=== PATIENT | male | born 1995 | race Two or more races ===

== ENCOUNTER 2022-06-17 15:30 | Outpatient (CLI) | payer OTHER ==
--- NOTE | 2022-06-17 16:24 | SLEEP CARE CONSULTATION ---
Information from patient questionnaire entered by Aníbal Alonso MA. I have reviewed and concur with the information entered by Aníbal Alonso MA. This document represents the service I personally performed and the decisions made by me, Una Valdez ARNP. History of Present Illness Service Date and Time: 06/17/2022 1530 Reason for Visit: New patient (ONSET 11/27/2019, NO PRIOR,) Chief Complaint: reports: Unrefreshed sleep, Snoring, Excessive daytime sleepin ess, Fatigue Date of Onset: 3 YEARS Usual bedtime: varies, 10 pm to other depending on shift Time it takes to fall asleep: 40 MINUTES Snores at night: Yes Observed to quit breathing while asleep: Yes Sleeps alone due to snoring: No Number of times waking at night: 1 Reasons for waking at night: reports: Bathroom, Other (twitching in sleep will wake him up). denies: Choking, Snoring, Gasping for air Toss, Turn, or Twitch while sleeping: Yes Recalls having dreams: No Usually gets out of bed at: 0500; days off 1000 Feels refreshed in the morning: No Morning headache: No Sleepy or fatigued during the day: Yes (some unintentional naps) Ever fallen asleep while driving: No Takes day naps: Yes (2-3 times a week for about 3 hrs, makes him feel worse) Dreams during day naps: No Prior sleep studies: No Additional HPI information: I had the pleasure of seeing ADRIAN VITAL today regarding the possibility of him having a sleep disorder. His current complaints are excessive daytime sleepiness, fatigue, snoring and unrefreshed sleep. He states he has snoring for a long time. He will also twitched in his sleep and he does not wake up feeling refreshed. His has noted pauses in breathing when he is sleeping. He works for the and his schedule can vary from days to nights. - Parasomnia Symptoms Ever been unable to move upon waking from sleep: Yes Walks in sleep: No Talks in sleep: Yes (sometimes) Ever acted out dreams in sleep: No Ever felt weak in the knees when startled or emotional: No Bothered by creepy, crawly, restless sensations in legs: No Problems with memory or concentration: Yes (memory more, little bit of both) Subjective Initial [place] Sleepiness Scale score: 13 (06/17/2022) Past Medical History Past Medical History: reports: Depression Social History The patient's occupation is a [employer]. Patient is and lives in . Have you smoked in the past 12 months: No Alcohol use: Yes Alcohol amount and frequency: 2 drinks a week Caffeine use: No Family History Family history of sleep disordered breathing: No (UNKNOWN) Family Hx Sleep Apnea: Mother: Snoring Allergies and Home Medications Known drug allergies: No Drug allergies reviewed: Yes (NKDA) Home medication list reviewed: Yes Allergy and home medication list: Medications: Opthalmic solution for eyes Zyzal for allergies Zoloft - starting as soon as get script Review of Systems Weight gain over past 5 years: 40 lb Cardiovascular: denies: high blood pressure Gastrointestinal: denies: heartburn Neurological: reports: headaches. denies: head trauma Psychiatric: reports: anxiety, depression Ear/Nose/Throat: reports: wisdom teeth removed. denies: tonsillectomy Musculoskeletal: reports: back pain Immunologic: reports: sneezing, allergies to food or environment (seasonal allergies) Physical Exam Vital signs obtained and entered by: Mandi ALONSO CMA AAYESENIA Blood Pressure: 123/80 (RESP 18, PULSE 70, RIGHT, ) Cuff size: wrist Heart Rate: 62 O2 Saturation: 98 (PAPER MASK) Height: 5 ft 6 in Weight: 170 lb (CLOTHES) Body Mass Index: 27.4 BMI Classification: Overweight Neck circumference: 14.5 (INCHES) Mouth and throat: normal Soft palate: normal Hard palate: normal Uvula: long Uvula visualization: 50% Mallampati Class II Tongue: enlarged in size with teeth whitaker on lateral edges Tonsils: small Neck: normal w/o lymphadenopathy or thyromegaly Heart: regular rate and rhythm Lungs: clear bilaterally Impression and Plan 1. Suspected Obstructive Sleep Apnea-Hypopnea Syndrome, as suggested by a history of loud and irregular snoring, observed cessation of breath while asleep, unrefreshed sleep, cognitive impairment, and excessive daytime sleepiness. Narrow oropharynx and obesity are common predisposing factors for obstructive sleep apnea-hypopnea syndrome. I recommend proceeding to polysomnography to confirm the diagnosis and to assess severity. If the patient has significant sleep disordered breathing, a manual CPAP titration study will also be performed to find the optimal treatment pressure. I informed the patient of what the sleep studies involve and after some discussion, obtained agreement to proceed. The pathophysiology of obstructive sleep apnea-hypopnea syndrome was discussed with the patient and health risks of cardiovascular and cerebrovascular disease if not treated. Risks of drowsy driving discussed in detail and patient advised to avoid long distance driving and to conductor pullman at the first sign of drowsiness. Patient agreed to plan. * Schedule polysomnography * Avoid long distance driving or driving when feeling sleepy. * Avoid alcohol, sedative and muscle relaxant around bedtime. * Attempt to lose weight. * Review instructions provided by trained office staff on how to prepare for the sleep study. * Return for follow-up after sleep study completed. Counseling Topics: Weight loss health impact Visit Type: In Office Time Spent with Patient (minutes): 31 Provider Statement: I spent 100% of the Face to Face Visit with the patient with greater than 50% spent counseling the patient and coordination of care.
[2022-06-17 16:25] VITALS: BP 123/80
== END 2022-06-17 15:31 | disposition home or self-care (01) ==
LOC: SC 15:30
PROVIDERS: ATTEND Nurse Practitioner Family
DX: R06.83 Snoring (principal); G47.8 Other sleep disorders; R41.89 Other symptoms and signs involving cognitive functions and awareness; G47.10 Hypersomnia, unspecified
CPT/HCPCS: 99203; 99212

== ENCOUNTER 2022-07-26 15:04 | Outpatient (CLI) | payer OTHER ==
[2022-07-26 16:00] VITALS: BP 121/91
--- NOTE | 2022-07-26 16:00 | SLEEP CARE CONSULTATION ---
Information from patient questionnaire entered by Aníbal Burns MA. I have reviewed and concur with the information entered by Aníbal Burns MA. This document represents the service I personally performed and the decisions made by , Una Valdez ARNP. History of Present Illness Service Date and Time: 07/26/2022 1504 Initial [place] Sleepiness Scale score: 13 (06/17/2022) Current [place] Sleepiness Scale score: 14 Additional HPI information: ADRIAN VITAL returns for follow up and results of the recently performed polysomnography. The patient was informed of the following findings: No significant sleep disordered breathing with an average AHI of 0.3 and ysabel oxygen saturation of 93%. I explained the pathophysiology behind obstructive sleep apnea. Patient does not have sleep apnea and was advised how weight gain could increase the risk of developing sleep apnea in the future. I strongly encouraged the patient to lose weight. Patient has light snoring. Snoring can be reduced by weight loss. Weight loss is best achieved with diet consult. Patient instructed to contact PCP for referral. Snoring can also be treated with an oral appliance from a dentist. Advised to check insurance coverage. In addition, an ENT evaluation can be do to see if other treatment is indicated. Patient counseled not drink alcohol less than 4 hours before bedtime as it can increase snoring and apnea. Patient was cautioned about risks of drowsy driving until sleepiness symptoms resolve. Patient denies drowsy driving. Sleep Study - Results Type of Sleep Study: Polysomnography (f/u poly, 07/04/2022 [facility], neg,) Prior sleep studies: No Polysomnography/Home Sleep Study results: IMPRESSION: The quality of the study is good. The patient had normal sleep efficiency. The sleep architecture was relatively normal as well considering the first night effect. Respiratory monitoring showed no significant sleep disordered breathing (AHI = 0.3) or hypoxia (ysabel oxygen saturation of 93%). The patient slept adequately in supine position (supine AHI = 0.5; non-supine = 0.22). Snore was infrequent and light in intensity. There was no significant periodic leg movement of sleep. Cardiac rhythm was normal sinus rhythm without significant arrhythmia. No abnormal behavior (parasomnia) observed during the night Allergies and Home Medications Home medication list reviewed: Yes (started Zoloft for depression) Review of Systems Review of systems same as previous: Yes (no changes) Physical Exam Vital signs obtained and entered by: YESENIA Burns Blood Pressure: 121/91 Cuff size: wrist (left) Heart Rate: 70 O2 Saturation: 97 Height: 5 ft 6 in Weight: 180 lb Body Mass Index: 29.0 BMI Classification: Overweight Impression and Plan Snoring but no significant sleep disordered breathing. Patient advised that often weight loss will reduce snoring as well as apnea risk. An oral appliance can also be used for snoring. This would require a dental consultation. Patient cautioned not to use other online appliances as can cause bite issues. A list of accredited dentists in [facility] and one local dentist who makes oral appliances is available in office. Patient is advised to check if insurance will cover. An ENT consult can also be helpful to determine if any other treatment is an option. * Attempt to lose weight * Avoid alcohol consumption near bedtime * The patient is cautioned about driving until sleepiness is completely resolved. * Return as needed for follow up. Counseling Topics: Weight loss health impact Visit Type: In Office Time Spent with Patient (minutes): 12 Provider Statement: I spent 100% of the Face to Face Visit with the patient with greater than 50% spent counseling the patient and coordination of care.
== END 2022-07-26 15:05 | disposition home or self-care (01) ==
LOC: SC 15:04
PROVIDERS: ATTEND Nurse Practitioner Family
DX: R06.83 Snoring (principal); E66.3 Overweight; Z68.29 Body mass index [BMI] 29.0-29.9, adult
CPT/HCPCS: 99212

== ENCOUNTER 2022-10-06 13:13 | Outpatient (CLI) | payer OTHER ==
--- NOTE | 2022-10-06 15:12 | MRI Report ---
PROCEDURE: BRAIN WO INDICATIONS: HEADACHE TECHNIQUE: Noncontrast axial T1 spin echo, axial T2 fast spin echo, sagittal and axial FLAIR, coronal T2 fast sp in echo, axial gradient echo, axial diffusion and ADC through the brain. COMPARISON: None. FINDINGS: Image quality: Excellent. CSF Spaces: Basal cisterns are patent. No extra-axial fluid collections. Ventricles are normal in size and shape. Brain: No intracranial masses or hemorrhage. Kamara/white matter interface is normal. Brainstem appe ars normal. Diffusion-weighted images demonstrate no acute ischemic insult. No chronic ischemic ins ults. Normal intravascular flow voids are present. Skull and face: Calvarium has normal marrow signal. Orbits appear normal. Sinuses: Sinuses and mastoids are predominantly clear. IMPRESSION: Unremarkable MRI of the brain. Reviewed by: David Lawler MD on 10/06/2022 3:10 PM PST Approved by: David Lawler MD on 10/06/2022 3:10 PM [facility] Station ID: [id number]
== END 2022-10-06 13:14 | disposition home or self-care (01) ==
LOC: DI 13:13
PROVIDERS: ATTEND Student in an Organized Health Care Education/Training Program
DX: R51.9 Headache, unspecified (principal)